=== PATIENT | male | born 2000 | race Caucasian/White ===

== ENCOUNTER 2023-10-12 20:57 | Emergency (ER) | payer OTHER ==
[~2023-10-12] VITALS: Ht 190.5 cm; Wt 79.4 kg
[2023-10-12 21:07] VITALS: BP 110/88; PULSE 86; RESP 18; TEMP 98.9; O2SAT 98
[2023-10-12 21:32] VITALS: BP 110/88; PULSE 86; RESP 18; TEMP 98.9
[2023-10-12 21:46] VITALS: O2SAT 100
[2023-10-12] MEDS ORDERED: PENI250T21 PO (21:46)
[2023-10-12] MEDS ORDERED: IBUP-2213 PO (21:47)
== END 2023-10-12 22:00 | disposition home or self-care (01) ==
LOC: MED 20:57
DX: K04.7 Periapical abscess without sinus (principal); Z98.890 Other specified postprocedural states
CPT/HCPCS: 99283